=== PATIENT | female | born 1960 | race Caucasian/White ===

== ENCOUNTER 2019-09-16 05:55 | Day surgery (SDC) | payer BC ==
[2019-09-16] MEDS ORDERED: ROPIVACAINE HCL (NAROPIN) /PF 5MG/ML 20ML VIAL IV ONE (05:56)
[2019-09-16] MEDS ORDERED: MIDAZOLAM HCL 2MG/2ML VIAL IV ONE (05:56)
[2019-09-16] MEDS ORDERED: PROPOFOL 10 MG/ML VIAL IV ONE (05:56)
[2019-09-16] MEDS ORDERED: LIDOCAINE 2% MDV (20MG/ML) 20ML VIAL IV ONE (05:56)
[2019-09-16] MEDS ORDERED: DEXAMETHASONE 4 MG/ML 1ML VIAL IVP ONE (05:56)
[2019-09-16] MEDS ORDERED: ONDANSETRON HCL IV 4 MG/2 ML VIAL IVP ONE (05:56)
[2019-09-16] MEDS ORDERED: METOCLOPRAMIDE 10 MG TABLET PO ONE (06:00)
[2019-09-16] MEDS ORDERED: VANCOMYCIN 1GM/200ML PREMIX 1 GM/200 ML PIGGYBACK IVPB ONE (06:00)
[2019-09-16] MEDS ORDERED: CELECOXIB 100 MG CAPSULE PO ONE (06:00)
[2019-09-16] MEDS ORDERED: SCOPOLAMINE 1 PATCH TDSY TD ONE (06:00)
[2019-09-16] MEDS ORDERED: CEFAZOLIN 2 Gram 2 GM/50 ML BAG IVPB ONE (06:00)
[2019-09-16] MEDS ORDERED: ACETAMINOPHEN 500 MG TABLET PO ONE (06:00)
[2019-09-16] MEDS ORDERED: FAMOTIDINE 20MG TABLET PO ONE (06:00)
[2019-09-16] MEDS ORDERED: RINGERS SOLUTION,LACTATED 1,000 ML IV ONE ×3 (06:40→09:49)
[2019-09-16 06:58] LABS: ABO GROUP O; ANTIBODY SCREEN NEGATIVE (NEGATIVE); RH TYPE POSITIVE
[2019-09-16] MEDS ORDERED: TRAMADOL HCL 50 MG TABLET PO PRN ×2 (08:09)
[2019-09-16] MEDS ORDERED: PROMETHAZINE HCL 25 MG TABLET PO PRN (08:09)
[2019-09-16] MEDS ORDERED: BISACODYL 10 MG SUPP RC PRN (08:09)
[2019-09-16] MEDS ORDERED: AL HYDROX/MAG HYDROX 30ML UD PO PRN (08:09)
[2019-09-16] MEDS ORDERED: KETOROLAC 30 MG/ML VIAL IVP PRN (08:09)
[2019-09-16] MEDS ORDERED: METOCLOPRAMIDE 10 MG TABLET PO PRN (08:09)
[2019-09-16] MEDS ORDERED: ACETAMINOPHEN W/ CODEINE 300MG/60MG TABLET PO PRN (08:09)
[2019-09-16] MEDS ORDERED: ONDANSETRON 4 MG ODT TABLET SL PRN (08:09)
[2019-09-16] MEDS ORDERED: MAGNESIUM HYDROXIDE 30 ML UDC PO PRN (08:09)
[2019-09-16] MEDS ORDERED: DIPHENHYDRAMINE HCL 25 MG CAPSULE PO PRN (08:09)
[2019-09-16] MEDS ORDERED: HYDROMORPHONE HCL 2 MG/ML VIAL IM PRN ×2 (08:09)
[2019-09-16] MEDS ORDERED: HYDROCODONE/APAP 7.5/325MG TABLET PO PRN (08:09)
[2019-09-16] MEDS ORDERED: ACETAMINOPHEN W/ CODEINE 300MG/30MG TABLET PO PRN ×2 (08:09)
[2019-09-16] MEDS ORDERED: ACETAMINOPHEN 325 MG TAB PO PRN (08:09)
[2019-09-16] MEDS ORDERED: NALOXONE 0.4 MG/1 ML VIAL IVP PRN (08:09)
[2019-09-16] MEDS ORDERED: HYDROCODONE/APAP 5/325MG TABLET PO PRN ×2 (08:09)
[2019-09-16] MEDS ORDERED: TRANEXAMIC ACID 1,000 MG/10 ML ML IU ONE (08:34)
[2019-09-16] MEDS ORDERED: BUPIVACAINE 0.5% W/EPI MPF 30 ML VIAL SQ ONE (08:34)
[2019-09-16] MEDS ORDERED: BUPIVACAINE LIPOSOME 266MG/20ML VIAL SQ ONE (08:34)
[2019-09-16] MEDS ORDERED: VANCOMYCIN HCL 1 GM VIAL IU ONE (08:35)
[2019-09-16] MEDS ORDERED: VANCOMYCIN HCL 1 GM VIAL IR ONE (08:35)
[2019-09-16] MEDS ORDERED: TRANEXAMIC ACID 1,000 MG/10 ML ML IVPB ONE (08:35)
[2019-09-16] MEDS ORDERED: GLYCOPYRROLATE 0.2 MG/ML ML IV ONE (10:21)
[2019-09-16] MEDS ORDERED: VANCOMYCIN HCL 500 MG in 0.9 % SODIUM CHLORIDE 100ML 100 ML IVPB SCH (11:00)
[2019-09-16] MEDS ORDERED: DEXTROSE 5 % AND 0.9 % NACL 1,000 ML IV PRN (11:00)
--- NOTE | 2019-09-16 14:04 | Rehab Evaluation ---
Patient Information - Patient Information Diagnosis: L knee DJD Ordered Treatment: PT Evaluate and Treat Status: Initial Evaluation Surgery: Yes (L TKA) Date of Surgery: 09/16/19 Past Medical/Surgical Hx: PAST MEDICAL/SURGICAL HISTORY Past Surgical History BILAT CATARACT EXTRACTION D AND C LEFT SHOULDER SX OOPHERECTOMY TUBAL LIGATION VEIN STRIPPING 3 LEFT KNEE SCOPES C SCOPE PMH - Respiratory Hx Respiratory Disorders Yes Hx Asthma Yes: HX OF R/T ALLERGIES Hx Bronchitis Yes Hx Pneumonia Yes Comment: ALLERGIES PMH - Cardiovascular Hx Cardiovascular Disorders Yes Hx Vascular Disease Yes: VARICOSE VEINS HX PHLEBITIS Exercise Tolerance Fair PMH - Neuro Hx Neurological Disorders No PMH - GI Hx Gastrointestinal Disorders Yes Comment: DIVERTICULOSIS? PMH - Hx Genitourinary Disorders No Hx Age of Menopause 53 Comment: TUBAL LIGATION 1984 PMH - Endocrine Hx Endocrine Disorders No PMH - Musculoskeletal Hx Musculoskeletal Disorders Yes Hx Arthritis Yes: KNEES AND OTHER MAJOR JOINTS PMH - Psych Hx Psychiatric Problems No PMH - Hematology/Oncology Hx Hematology/Oncology Yes Disorders Hx Anemia Yes: IN THE PAST Hx Bruising Yes: BRUISES EASILY Premorbid Status: Detail (The patient was independent with all mobility prior to surgery.) Social History: Detail (The patient lives in a one story house with no steps at the enterance( ground level). The bathroom is equipped with: tub/shower combination, shower bench, elevated toilet. No grab bars are present in the bathroom. The patient has a front wheeled walker and quad cane.) Precautions: [place], Fall, Other (WBAT on the L LE.) - Time With Patient Treatment Procedures: Detail (Initial Evaluation, low complexity) Subjective Information - Subjective Information Per Patient (The patient reports of level 4 pain in L knee.) Objective Data - Pain Pain Present: Yes Pain Intensity: 4 Pain Scale Used: Numeric (1 - 10) - Mental Status Patient Orientation: Oriented x3 - Visual Perception Appears within normal limits for therapeutic activities - ROM Not within normal limits (The patient's L knee AROM is limited s/p surgery.) - Strength/Tone Not within normal limits (The patient's LE strength was not tested s/p surgery however is functional.) - Bed Mobility Needs Assist (The patient required minimal assist to lift L LE for supine to and from sit transfer. The patient will be sleeping in recliner initially. The patient's sister is going to be able to assist her with lifting L LE with supine to sit.) - Transfers Independent (The patient was independent with sit to and from stand transfer.) - Balance Balance Sitting: Good Balance Standing: Good - Sensation Intact - Gait Detail (The patient ambulated with front wheeled walker WBAT on the L LE a distance of 75 feet x 1 independently. The patent declined ambulation on stairs ( does not have any) but was able to identify the proper technique.) Therapy Assessment - Therapy Assessment Detail (The paitent was independent with transfers and ambulation . The patient required minimal PA lifting L LE with supine to sit. Patient states she will be sleeping in a recliner. The patient has met all inpt. goals and is discharged from inpt. PT.) Problem List - Problem List Physical Therapy Problem List: Detail ( Decreased L knee AROM and strength has to be expected following surgery.) Goals - Goals Physical Therapy Goals: The patient has met all inpt. goals and is discharged from inpt. PT. Prognosis - Prognosis Good Plan - Plan Physical Therapy Plan: Inpt. PT is discharged. The patient is to receive Home PT.
--- NOTE | 2019-09-16 14:35 | Rehab Evaluation ---
Patient Information - Patient Information Diagnosis: L knee DJD Ordered Treatment: OT Evaluate and Treat Status: Initial Evaluation Surgery: Yes (L TKA) Date of Surgery: 09/16/19 Past Medical/Surgical Hx: PAST MEDICAL/SURGICAL HISTORY Past Surgical History BILAT CATARACT EXTRACTION D AND C LEFT SHOULDER SX OOPHERECTOMY TUBAL LIGATION VEIN STRIPPING 3 LEFT KNEE SCOPES C SCOPE PMH - Respiratory Hx Respiratory Disorders Yes Hx Asthma Yes: HX OF R/T ALLERGIES Hx Bronchitis Yes Hx Pneumonia Yes Comment: ALLERGIES PMH - Cardiovascular Hx Cardiovascular Disorders Yes Hx Vascular Disease Yes: VARICOSE VEINS HX PHLEBITIS Exercise Tolerance Fair PMH - Neuro Hx Neurological Disorders No PMH - GI Hx Gastrointestinal Disorders Yes Comment: DIVERTICULOSIS? PMH - Hx Genitourinary Disorders No Hx Age of Menopause 53 Comment: TUBAL LIGATION 1983 PMH - Endocrine Hx Endocrine Disorders No PMH - Musculoskeletal Hx Musculoskeletal Disorders Yes Hx Arthritis Yes: KNEES AND OTHER MAJOR JOINTS PMH - Psych Hx Psychiatric Problems No PMH - Hematology/Oncology Hx Hematology/Oncology Yes Disorders Hx Anemia Yes: IN THE PAST Hx Bruising Yes: BRUISES EASILY Premorbid Status: Detail (The patient was independent with all mobility, meal prep, laundry and yard work prior to surgery.) Social History: Detail (The patient lives alone in a one story house with no steps at the entrance. The bathroom is equipped with: tub/shower combination, shower bench, elevated toilet. No grab bars are present in the bathroom. The patient has a front wheeled walker and quad cane.) Precautions: [place], Fall, Other (WBAT on the L LE.) - Time With Patient Total Time Spent With Patient (Min): 35 Treatment Procedures: Detail (OT eval low complexity) Subjective Information - Subjective Information Per Patient Objective Data - Pain Pain Present: Yes (02/20) - Mental Status Patient Orientation: Oriented x3 - Visual Perception Appears within normal limits for therapeutic activities (Pt wears glasses at all times) - ROM Within normal limits (Ignacio UE AROM WNL) - Strength/Tone Within normal limits (Ignacio UE strength WNL) - Coordination Appears within normal limits for therapeutic activities - Bed Mobility Needs Assist (Pt requires assist to move left LE to EOB. She reports she will be sleeping in her recliner temporarily.) - Transfers Independent (Ind with sit to stand from EOB) - Balance Balance Sitting: Good Balance Standing: Good - Sensation Intact - Gait Detail (Pt ambulating in room with 2 wheeled walker and SBA.) - ADL's/IADL's Detail (Pt educated and able to demonstrate learning of modified LE dressing techniques including doffing slipper socks and donning sweatpants, socks and tennis shoes. Reviewed kitchen, shower and laundry modifications and safety, pt verbalized learning and she reports her sister is staying with her for a while.) Therapy Assessment - Therapy Assessment Detail (Pt is Ind with modified LE dressing techniques.) Problem List - Problem List Occupational Therapy Problem List: Detail (No current IP OT problems identified.) Goals - Goals Occupational Therapy Goals: No current IP OT goals identified. Prognosis - Prognosis Good Plan - Plan Occupational Therapy Plan: No further IP OT recommended. Thank you for this referral.
--- NOTE | 2019-09-16 14:42 | Operative Note ---
DATE OF SURGERY: 09/16/2019 PREOPERATIVE DIAGNOSIS: 1. END STAGE LEFT KNEE ARTHROSIS. 2. MORBID OBESITY. POSTOPERATIVE DIAGNOSIS: 1. END STAGE LEFT KNEE ARTHROSIS. 2. MORBID OBESITY. OPERATION: TOTAL LEFT KNEE ARTHROPLASTY. SURGEON: Kwame Max M.D. ANESTHESIA: Spinal. COMPLICATIONS: None. ESTIMATED BLOOD LOSS: Minimal. OPERATIVE FINDINGS: [id number] medial compartment arthrosis. COMPONENTS PLACED: A Lechuga [employer] Journey II Oxinium total knee arthroplasty system size 6 femoral component, size 6 tibial baseplate, a 13 mm thick tibial poly insert, and 35 mm cemented patellar component and 2 grams of Vancomycin. INDICATIONS: This 59-year-old female with morbid obesity who has had bilateral knee pain and symptoms for years, left actually worse than right, [id number]. Failed nonoperative treatments. She had a previous knee arthroscopies and multiple injections. I explained all risks and benefits in detail for the diagnosis and procedures including, but not limited to infection, nerve injury, vessel injury, persistent pain, stiffness, numbness and tingling in the knee, periprosthetic fracture, need for resection, arthroplasty, if components become infected or loosen, nerve injury, vessel injury, blood clot, and need for further procedures, need for anticoagulation to prevent blood clots and risk associated with these medication, and need for further procedures. All her questions were answered. Rehab course was outlined. She agreed to the proceed. PROCEDURE: The patient was brought to the Operating Room, placed in the supine position, prepped for surgery. Spinal anesthesia induced. The left lower extremity and knee were prepped and draped in sterile fashion. The left knee was prepped again with ChloraPrep after it was draped. Intraoperative timeout was performed. Next, the leg was exsanguinated with Esmarch. Tourniquet was not used and we used Aquamantys during the entire case for cautery. Next skin and subcutaneous tissue was dissected down, we used Aquamantys in each layer of approach. We carefully cauterized any bleeders. We incised the capsule medially around the medial border of the patella to the tibial tubercle. Incised the vastus medialis in line with its fibers in a mid vastus approach. Elevated the capsule subperiosteally and medially and partially resected the retropatellar fat pad, everted the patella. Next we flexed the knee. She had [id number] medial compartment arthrosis. Drilled the intracondylar drill hole, inserted the intramedullary guide rode, 6- degree cutting block. Aligned the distal femoral condyles, pinned it in the +2 mm position, and then cut the distal femoral condyles. Next, we placed the sizing jig on the distal femoral condyle, and sized it to be right on a size 6. Through the previously placed pin holes, we placed the size 6 cutting jig. We dialed the anterior cut so it would come out flush without notching. We cut that cut. It was a good flush cut. We then pinned and cut the remainder of the chamfer cuts in usual fashion. We placed a trial 6 component, centered it, it had good fit, pinned it in place and then inserted the resection collet, reamed out, and box Osteomed out cruciate bone block. Attention was turned to to the tibia. We exposed the tibia, we removed any menisci, and placed the external alignment jig, spikes in the tubercular groove 2 fingerbreadths distally off the anterior tibial cortex, posterior slope referenced for 7 mm cut off the higher lateral plateau. We pinned the cutting jig provisionally in place, and then rechecked the alignment of the cutting jig with drop rico on the tibial anatomic axis, cross-pinned it completing its fixation and then cut the tibia. We removed osteophytes off the posterior femoral condyles using a curved osteotome. Next check flexion and extension gaps and basically sized up the 13 mm thick tibial insert does allow for 1-2 mm of varus/valgus laxity in overall alignment, cuts and extension. Anatomic valgus orientation alignment runs in the hip joint and ankle joint. Next, then took the knee into flexion, sized the tibial baseplate to size 6, replaced all trial components, set the rotation tibial baseplate again in extension using the alignment rico centered on hip joint and ankle joint. Placed felton on the tibial cortex off the laser felton of the tibial baseplate. Attention was then turned to the patella, measured the patella to be 24 mm, set the cutting jig at 15 mm to allow for a 9 mm thick insert and then we cut the patella using the cutting jig, chamfered off the lateral patellar facet, rechecked the thickness, it was right on 15 , size to be 35 mm, medialized as much as possible, drilled three peg holes and mixed cement. We placed the trial patellar component and did trial range of motion, the patella tracked nicely handsfree with full extension, flexion to 123 degrees. Next took flexion, set the rotation to basically begin flexion using previously placed felton, pinned in place, and drilled out, keel punched the keel hole. Next use Aquamantys with the posterior capsule carefully cauterizing that as well and then placed a bone plug in the femoral canal hole and then placed cement in both components and then impacted down the tibial component and removed excess cement and then impacted down the femoral component and removed the excess cement and then placed the trial tibial poly liner, held the knee in extension and clamped down the patella component until the cement hardened. Next then took the knee into flexion, distracted the knee with bone hook and sponge. Removed any excess cement around the edges of the components. Irrigated copiously again and then cauterized again with Aquamantys in the posterior capsule. We then injected our 0.5% Marcaine with epinephrine, tranexamic acid and Exparel mixture in the posterior capsule and medially out. Next inserted the real tibial poly insert and then verified it was interlocked. We found our range of motion to be the same. We irrigated the knee again, closed the capsule and flexion using running #2 Quill suture securely and then injected a bolus to the subcutaneous tissue and closed the skin with 2-0 Vicryl and osvaldo and placed a SARA dressing. The patient tolerated the procedure well, sterile dressing applied. Aaron wrap. The patient tolerated the procedure well. No intraoperative complications. Sponge, needle, and blade counts correct. Sent to the Recovery Room stable, neurovascularly intact. He will be discharged as an outpatient and to follow-up in two weeks. CC: Dr. Steve Jeter JOB NUMBER: [id number] [facility]
[2019-09-16] MEDS ORDERED: DOCUSATE SODIUM 100 MG CAPSULE PO SCH (22:00)
== END 2019-09-16 15:05 | disposition home health service (06) ==
LOC: SUR 05:55 → MEDSURG 11:02 → SUR 15:05
PROVIDERS: ATTEND Orthopaedic Surgery
DX: M17.12 Unilateral primary osteoarthritis, left knee (principal); E66.01 Morbid (severe) obesity due to excess calories
CPT/HCPCS: 76942; 86850; 86900; 86901; C1776; J1885; J2405; J3370; J7120

== ENCOUNTER 2019-11-04 07:55 | Day surgery (SDC) | payer BC ==
[~2019-11-04 07:55] MED LIST: ACETAMINOPHEN 500 MG TABLET PO ONE; CEFAZOLIN 2 Gram 2 GM/50 ML BAG IVPB ONE; CELECOXIB 100 MG CAPSULE PO ONE; FAMOTIDINE 20MG TABLET PO ONE; METOCLOPRAMIDE 10 MG TABLET PO ONE; SCOPOLAMINE 1 PATCH TDSY TD ONE; VANCOMYCIN 1GM/200ML PREMIX 1 GM/200 ML PIGGYBACK IVPB ONE
[2019-11-04] MEDS ORDERED: LIDOCAINE 2% MDV (20MG/ML) 20ML VIAL IV ONE (07:56)
[2019-11-04] MEDS ORDERED: PROPOFOL 10 MG/ML VIAL IV ONE (07:56)
[2019-11-04] MEDS ORDERED: FENTANYL PF 100MCG/2ML VIAL IV ONE (07:56)
[2019-11-04] MEDS ORDERED: MIDAZOLAM HCL 2MG/2ML VIAL IV ONE (07:56)
[2019-11-04] MEDS ORDERED: DEXAMETHASONE 4 MG/ML 1ML VIAL IVP ONE ×2 (07:56)
[2019-11-04] MEDS ORDERED: EPHEDRINE SULFATE 50 MG/ML ML IV ONE (07:56)
[2019-11-04] MEDS ORDERED: KETOROLAC 30 MG/ML VIAL IVP ONE (07:56)
[2019-11-04] MEDS ORDERED: PHENYLEPHRINE HCL 10 MG/ML VIAL IVP ONE (07:56)
[2019-11-04] MEDS ORDERED: ROPIVACAINE HCL (NAROPIN) /PF 5MG/ML 20ML VIAL IV ONE (07:56)
[2019-11-04] MEDS ORDERED: AL HYDROX/MAG HYDROX 30ML UD PO PRN (08:09)
[2019-11-04] MEDS ORDERED: NALOXONE 0.4 MG/1 ML VIAL IVP PRN (08:09)
[2019-11-04] MEDS ORDERED: ACETAMINOPHEN W/ CODEINE 300MG/60MG TABLET PO PRN (08:09)
[2019-11-04] MEDS ORDERED: HYDROCODONE/APAP 7.5/325MG TABLET PO PRN (08:09)
[2019-11-04] MEDS ORDERED: KETOROLAC 30 MG/ML VIAL IVP PRN (08:09)
[2019-11-04] MEDS ORDERED: MAGNESIUM HYDROXIDE 30 ML UDC PO PRN (08:09)
[2019-11-04] MEDS ORDERED: DIPHENHYDRAMINE HCL 25 MG CAPSULE PO PRN (08:09)
[2019-11-04] MEDS ORDERED: ONDANSETRON 4 MG ODT TABLET SL PRN (08:09)
[2019-11-04] MEDS ORDERED: HYDROMORPHONE HCL 2 MG/ML VIAL IM PRN ×2 (08:09)
[2019-11-04] MEDS ORDERED: METOCLOPRAMIDE 10 MG TABLET PO PRN (08:09)
[2019-11-04] MEDS ORDERED: BISACODYL 10 MG SUPP RC PRN (08:09)
[2019-11-04] MEDS ORDERED: PROMETHAZINE HCL 25 MG TABLET PO PRN (08:09)
[2019-11-04] MEDS ORDERED: TRAMADOL HCL 50 MG TABLET PO PRN ×2 (08:09)
[2019-11-04] MEDS ORDERED: HYDROCODONE/APAP 5/325MG TABLET PO PRN ×2 (08:09)
[2019-11-04] MEDS ORDERED: ACETAMINOPHEN W/ CODEINE 300MG/30MG TABLET PO PRN ×2 (08:09)
[2019-11-04] MEDS ORDERED: ACETAMINOPHEN 325 MG TAB PO PRN (08:09)
[2019-11-04 08:48] LABS: ABO GROUP O; ANTIBODY SCREEN NEGATIVE (NEGATIVE); RH TYPE POSITIVE
[2019-11-04] MEDS ORDERED: RINGERS SOLUTION,LACTATED 1,000 ML IV ONE ×3 (09:00→12:32)
[2019-11-04] MEDS ORDERED: BUPIVACAINE 0.5% W/EPI MPF 30 ML VIAL IU ONE (10:47)
[2019-11-04] MEDS ORDERED: TRANEXAMIC ACID 1,000 MG/10 ML ML IVPB ONE (10:48)
[2019-11-04] MEDS ORDERED: BUPIVACAINE LIPOSOME 266MG/20ML VIAL SQ ONE (10:48)
[2019-11-04] MEDS ORDERED: VANCOMYCIN HCL 1 GM VIAL IU ONE (10:48)
[2019-11-04] MEDS ORDERED: VANCOMYCIN HCL 1 GM VIAL IR ONE (10:48)
[2019-11-04] MEDS ORDERED: TRANEXAMIC ACID 1,000 MG/10 ML ML IU ONE (10:48)
[2019-11-04] MEDS ORDERED: BUPIVACAINE 0.5% W/EPI MPF 30 ML VIAL SQ ONE (11:34)
[2019-11-04] MEDS ORDERED: VANCOMYCIN HCL 500 MG in 0.9 % SODIUM CHLORIDE 100ML 100 ML IVPB SCH (13:00)
[2019-11-04] MEDS ORDERED: DEXTROSE 5 % AND 0.9 % NACL 1,000 ML IV PRN (13:00)
--- NOTE | 2019-11-04 14:30 | Rehab Evaluation ---
Patient Information - Patient Information Diagnosis: right knee OA Ordered Treatment: OT Evaluate and Treat Status: Initial Evaluation Surgery: Yes (right TKA) Date of Surgery: 11/04/19 Past Medical/Surgical Hx: PAST MEDICAL/SURGICAL HISTORY Surgery to Affected Area? No Recent Surgery? Past Surgical History LTKA 09-16-19 BILAT CATARACT EXTRACTION D AND C LEFT SHOULDER SX OOPHERECTOMY TUBAL LIGATION VEIN STRIPPING PMH - Respiratory Hx Respiratory Disorders Yes Hx Asthma Yes: HX OF R/T ALLERGIES Hx Bronchitis Yes Hx Pneumonia Yes Comment: ALLERGIES PMH - Cardiovascular Hx Cardiovascular Disorders Yes Hx Vascular Disease Yes: VARICOSE VEINS HX PHLEBITIS Exercise Tolerance Fair PMH - Neuro Hx Neurological Disorders No PMH - GI Hx Gastrointestinal Disorders Yes Comment: DIVERTICULOSIS? PMH - Hx Genitourinary Disorders No Hx Age of Menopause 53 Comment: TUBAL LIGATION 1983 PMH - Endocrine Hx Endocrine Disorders No PMH - Musculoskeletal Hx Musculoskeletal Disorders Yes Hx Arthritis Yes: RIGHT KNEE AND OTHER MAJOR JOINTS PMH - Psych Hx Psychiatric Problems No PMH - Hematology/Oncology Hx Hematology/Oncology Yes Disorders Hx Anemia Yes: IN THE PAST Hx Bruising Yes: BRUISES EASILY Premorbid Status: Detail (Pt lives alone in a one story house, no steps at the entrance. She has a tub/shower combination with a shower bench and an elevated toilet. There are no grab bars in the bathroom. She has a 2 wheeled walker and quad cane. She is responsible for all home mgmt, meal prep and laundry.) Social History: Detail (Supportive daughter who will be staying with her temporarily) Precautions: [place], Fall, Other (WBAT right LE) - Time With Patient Total Time Spent With Patient (Min): 30 Treatment Procedures: Detail (OT eval low complexity) Subjective Information - Subjective Information Per Patient Objective Data - Pain Pain Present: Yes (12/23) - Mental Status Patient Orientation: Oriented x3 - Visual Perception Appears within normal limits for therapeutic activities - ROM Within normal limits (Ignacio UE AROM WNL) - Strength/Tone Within normal limits (Ignacio UE strength WNL) - Coordination Appears within normal limits for therapeutic activities - Bed Mobility Independent (Ind with supine to sit) - Transfers Independent (Ind with sit to stand from EOB and toilet heights.) - Balance Balance Sitting: Good Balance Standing: Good - Sensation Intact - Gait Detail (Pt ambulating in room with 2 wheeled walker and supervision.) - ADL's/IADL's Detail (Reviewed modified LE dressing techniques. Pt was Ind with donning pants, socks and tennis shoes. Reviewed kitchen and shower safety and mod ifications, pt verbalized understanding.) Therapy Assessment - Therapy Assessment Detail (Pt is Ind with LE dressing techniques.) Problem List - Problem List Occupational Therapy Problem List: Detail (No current IP OT problems identified.) Goals - Goals Occupational Therapy Goals: No current IP OT goals identified. Prognosis - Prognosis Good Plan - Plan Occupational Therapy Plan: Pt is discharged from IP OT at this time. Thank you for this referral.
--- NOTE | 2019-11-04 14:35 | Rehab Evaluation ---
Patient Information - Patient Information Diagnosis: right knee OA Ordered Treatment: PT Evaluate and Treat Status: Initial Evaluation Surgery: Yes (right TKA) Date of Surgery: 11/04/19 Past Medical/Surgical Hx: PAST MEDICAL/SURGICAL HISTORY Surgery to Affected Area? No Recent Surgery? Past Surgical History LTKA 09-16-19 BILAT CATARACT EXTRACTION D AND C LEFT SHOULDER SX OOPHERECTOMY TUBAL LIGATION VEIN STRIPPING PMH - Respiratory Hx Respiratory Disorders Yes Hx Asthma Yes: HX OF R/T ALLERGIES Hx Bronchitis Yes Hx Pneumonia Yes Comment: ALLERGIES PMH - Cardiovascular Hx Cardiovascular Disorders Yes Hx Vascular Disease Yes: VARICOSE VEINS HX PHLEBITIS Exercise Tolerance Fair PMH - Neuro Hx Neurological Disorders No PMH - GI Hx Gastrointestinal Disorders Yes Comment: DIVERTICULOSIS? PMH - Hx Genitourinary Disorders No Hx Age of Menopause 53 Comment: TUBAL LIGATION 1983 PMH - Endocrine Hx Endocrine Disorders No PMH - Musculoskeletal Hx Musculoskeletal Disorders Yes Hx Arthritis Yes: RIGHT KNEE AND OTHER MAJOR JOINTS PMH - Psych Hx Psychiatric Problems No PMH - Hematology/Oncology Hx Hematology/Oncology Yes Disorders Hx Anemia Yes: IN THE PAST Hx Bruising Yes: BRUISES EASILY Premorbid Status: Detail (Pt lives alone in a one story house, no steps at the entrance. She has a tub/shower combination with a shower bench and an elevated toilet. There are no grab bars in the bathroom. She has a 2 wheeled walker and quad cane. She is responsible for all home mgmt, meal prep and laundry.) Social History: Detail (Supportive daughter) Precautions: [place], Fall, Other (WBAT right LE) - Time With Patient Total Time Spent With Patient (Min): 25 Treatment Procedures: Detail (Initial Evaluation low complexity, gait training) Subjective Information - Subjective Information Per Patient (The patient had complaints of R knee pain but did not rate pain using 0-10 pain scale.) Objective Data - Mental Status Patient Orientation: Oriented x3 - Visual Perception Appears within normal limits for therapeutic activities - ROM Not within normal limits (The patient's R knee is limited s/p surgery as to be expected. All other LE AROM is WNL.) - Strength/Tone Not within normal limits (The patient's LE strength was not tested s/p surgery however is funtional.) - Bed Mobility Independent (The patient is independent with supine to and from sit transfer.) - Transfers Independent (The patient is indpendent with sit to and from stand transfer.) - Balance Balance Sitting: Good Balance Standing: Good - Gait Detail (The patient ambulated with front wheeled walker WBAT on the R LE independently a distance of 108 feet x 1. The patient had no stairs at home so declined ambulating on stairs. The patient did verbalize the proper technique of stair climbing.) Therapy Assessment - Therapy Assessment Detail (The patient was independent with bed mobility, transfers and ambulation. The patient is discharged from inpt. PT and is to continue with Home PT.) Patient Education - Patient Education Teaching Topic: Exercise/Activity (The patient's HEP was reviewed of seated heel slides, ankle pumps, quad sets, hamstring sets, gluteal sets and SLR) Response: Verbalize Understanding Teaching Method: Discussion, Handout Teaching Recipient: Patient Barriers To Learning: None Problem List - Problem List Physical Therapy Problem List: Detail (Decreased R LE strength and R knee AROM.) Occupational Therapy Problem List: Detail (No current IP OT problems identified.) Goals - Goals Physical Therapy Goals: The patient has met all inpt. PT goals. Occupational Therapy Goals: No current IP OT goals identified. Plan - Plan Physical Therapy Plan: The pt. is discharged from inpt. PT and is to continue with Home PT. Occupational Therapy Plan: Pt is discharged from IP OT at this time. Thank you for this referral.
[2019-11-04] MEDS ORDERED: DOCUSATE SODIUM 100 MG CAPSULE PO SCH (22:00)
--- NOTE | 2019-11-14 09:20 | Operative Note ---
DATE OF SURGERY: 11/04/2019 PREOPERATIVE DIAGNOSIS: Endstage right knee arthrosis. POSTOPERATIVE DIAGNOSIS: Endstage right knee arthrosis. OPERATION: Right knee total knee arthroplasty. SURGEON: Kwame Max M.D. ANESTHESIA: Spinal. ANESTHESIA PROVIDER: YULIA HORTON. COMPLICATIONS: None. ESTIMATED BLOOD LOSS: Minimal. TOURNIQUET: No tourniquet. Aquamantys used during the entire case. OPERATIVE FINDINGS: [id number] arthrosis. COMPONENTS PLACED: 2 g vancomycin cement, Lechuga & Nephew total knee arthroplasty system size 7 Oxinium femoral components, size 6 tibial baseplate, a 13 mm thick tibial poly insert, and a 35 mm cemented patellar component. INDICATIONS FOR OPERATION: This is a 39-year-old female who has had persistent pain and dysfunction of both knees for several years. She is status post left knee replacement done by myself 2 months ago and is now scheduled for a right. I explained the risks and benefits to her in detail for the diagnosis and procedures, including, but not limited to, infection, nerve injury, vessel injury, pain, numbness or tingling in her knee, periprosthetic fracture, need for resection arthroplasty if components are infected or loosened, nerve injury to vessels and blood clot, and the need for the procedure and all of her questions were answered. The course was outlined and she agreed to proceed. PROCEDURE: The patient brought to the OR, placed in the supine position for operative surgery. General endotracheal anesthesia was induced. The right lower extremity and knee are prepped and draped in sterile fashion. The right knee is prepped with Chloraprep and draped. An intraoperative timeout was performed. Next, the leg was exsanguinated with Esmarch. No tourniquet was used. An anterior incision was made, the skin and subcutaneous tissue dissected down, after we injected with 0.5% Marcaine with epinephrine, tranexamic acid and Exparel mixture into the capsule and incised the capsule medially around the medial border of the patella to the tibial tubercle and everted the patella, partially resected the retro-patella fat pad, elevated the capsule subperiosteally to medially and flexed the knee. She had [id number] medial compartment arthrosis. I drilled an intracondylar drill hole. Inserted intramedullary guide rico, a 6 degree cutting block. I aligned it off the distal femoral condyles and pinned it in place with 2 pins, in the +2 mm position. Next, I cut the distal femoral condyles. Next, I placed a sizing jig distal femoral condyle, the size to be read on size 7 through the previously-placed pin holes, placed size 7 cutting jig, we dialed in the anterior cut, so it come out flush without notching and we cut that. It was a good flush cut, pinned it and cut the remainder of the chamfer cuts in the usual fashion. Next, then we placed a size 7 trial component, centered it, pinned it, removed osteophytes off of the posterior femoral condyles, I made a good flush cut. Next, I placed a resection duncan and seated it and drilled and keeled and punched out the cruciate bone block. Attention turned to the tibia. I placed the external alignment jig in the tibia, seated this flexed in the tubercle groove 2 fingerbreadths distally off the anterior tibial cortex in reference for a 7 mm cut off the higher lateral plateau. I totally pinned the cutting jig provision and placed with 2 pins and then rechecked the alignment of the cutting jig using a drop rico, centering on the tibial anatomic axis and cross-pinned the tibial cutting jig and completed fixation and cut the tibia. I removed the osteophytes off the posterior femoral condyles. Checked the flexion and extension gaps and basically and partially released the down to the MCL medially to size up, shows tight medially and loose laterally, so we had symmetric gaps with the 32 mm poly insert. This allowed for 1 to 2 mm in varus valgus flexion and extension. Next, we took the knee in flexion, we sized the tibial baseplate to size 6, replaced all trial components and set the rotation again in extension using the alignment rico centered on the hip joint and ankle joint, marked with electrocautery felton, they were aligned on the hip joint and ankle joint in normal valgus orientation and marked with electrocautery, placed pin felton off the laser felton on the tibial baseplate. Attention turned to the patella. We measured the patella to be 25 mm, set the cutting jig at 16 mm to allow for a 9 mm thick insert, we cut the patella, chamfered off the lateral patellar facet, and remeasured, it was right on 16, then the size would be 35 mm, we medialized as much as possible, drilled 3 peg holes and mixed cement, did a trial range of motion, the patella tracked nicely in 3 at full extension and flexion, again symmetric gaps. Next, we took the knee into flexion, seated the tibial baseplate with the previously placed electrocautery felton. Pinned in place and reamed out in a keel punch and keel hole. We placed a bone plug in the femoral canal hole. I placed the drill bit in the keel hole. We again cauterized the posterior capsule with Aquamantys and the injector of 0.5% Marcaine with epinephrine Exparel mixture there and then after irrigating copiously with precut bolsters and after drying with the CarboJet all bony surfaces prior to the implantation, impacted on the tubercle at first with the femoral component, and placed trial tibial liner and held the knee in extension, clamped down the patella component until the cement hardened. Once the cement hardened, removing excess cement off the edges of the components and distracted the knee with the bone hook and sponge and removed any excess cement around the posterior recess and then cauterized again and inserted the real tibial poly insert and verified it was interlocked medially and laterally. Final range of motion and stability were the same. We irrigated and closed the capsule in flexion using a running #2 Quill suture in the vastus split. We injected more 0.5% Marcaine with epinephrine deep in the vas medialis and subcutaneous area as well. Sterile dressing applied of the Acticoat. The patient tolerated the procedure well. No intraoperative complications. Sponge and needle counts correct. To recovery room stable and satisfactory. He will be discharged as an outpatient. Follow up in 2 weeks. ALFRED
== END 2019-11-04 15:00 | disposition home health service (06) ==
LOC: SUR 07:55 → MEDSURG 12:41 → SUR 15:00
PROVIDERS: ATTEND Orthopaedic Surgery
DX: M17.11 Unilateral primary osteoarthritis, right knee (principal)
CPT/HCPCS: 27130; 01214; 86900; 86901; 86850; C1776 ×3; J1885; J3370 ×2; J3010; J0690; C9290; J2795; J2370; J7120